=== PATIENT | male | born 1995 | race African-American/Black ===

== ENCOUNTER 2017-01-23 22:58 | Emergency (ER) | payer SELFPAY ==
[~2017-01-23] VITALS: Ht 167.6 cm; Wt 51.0 kg
[2017-01-24] MEDS ORDERED: SODIUM CHLORIDE 0.9% 1,000 ML IV ONE (02:30)
[2017-01-24 02:39] LABS: BASOPHILS % 0.2 % (0.0-2.0); DIFFERENTIAL COMMENT 0; EOSINOPHILS % 12.8 % (0.0-5.0); HEMATOCRIT. 39.8 % (42.0-52.0); HEMOGLOBIN. 12.8 g/dL (14.0-18.0); LYMPHOCYTES % 44.8 % (20.0-50.0); MEAN CORPUSCULAR HEMOGLOBIN 23.9 pg (28.0-32.0); MEAN CORPUSCULAR HGB CONC 32.3 g/dL (31.0-37.0); MEAN CORPUSCULAR VOLUME 74.2 fL (80.0-94.0); MEAN PLATELET VOLUME 8.2 fl (7.4-10.4); MONOCYTES % 8.5 % (2.0-8.0); NEUTROPHILS % 33.7 % (40.0-76.0); PLATELET 206 x1000/uL (130-400); RED BLOOD CELL COUNT 5.36 mill/uL (4.7-6.1); RED CELL DISTRIBUTION WIDTH 15.3 % (11.6-14.6); WHITE BLOOD COUNT 5.7 x1000/uL (4.5-11.0)
[2017-01-24 02:44] LABS: CHLORIDE 106 mEq/L (98-107); INDEX HEMOLYSI 1 (1-3); INDEX ICTERIC 1 (1-4); INDEX LIPEMIC 1 (1-3)
[2017-01-24 02:49] LABS: ANION GAP 10; CALCIUM 8.1 mg/dL (8.5-10.1); CARBON DIOXIDE 28 mEq/L (21-32); UREA NITROGEN BLOOD 10 mg/dL (7-21); eGFR > 60 mL/min (>60)
[2017-01-24 05:42] VITALS: BP 99/60
== END 2017-01-24 06:19 | disposition home or self-care (01) ==
LOC: ER 22:59
DX: R07.89 Other chest pain (principal); E86.0 Dehydration; J45.909 Unspecified asthma, uncomplicated
CPT/HCPCS: 36415; 80048; 85025; 96360; 99284; 99285; J7030

== ENCOUNTER 2017-01-28 05:16 | Emergency (ER) | payer SELFPAY ==
[~2017-01-28] VITALS: Ht 167.6 cm; Wt 61.0 kg
[2017-01-28] MEDS ORDERED: PREDNISONE 20MG TABLET PO ONE (06:45)
[2017-01-28] MEDS ORDERED: ALBUTEROL (0.083%) 2.5MG/3ML NEB HHN ONE (06:45)
[2017-01-28 06:52] VITALS: BP 122/88
== END 2017-01-28 09:15 | disposition home or self-care (01) ==
LOC: ER 05:32
DX: J45.901 Unspecified asthma with (acute) exacerbation (principal)
CPT/HCPCS: 71010; 94664; 99283; J7512; J7611

== ENCOUNTER 2017-02-01 01:46 | Emergency (ER) | payer SELFPAY ==
[~2017-02-01] VITALS: Ht 167.6 cm; Wt 59.0 kg
[2017-02-01] MEDS ORDERED: PREDNISONE 20MG TABLET PO STA (02:33)
[2017-02-01] MEDS ORDERED: IPRATROPIUM BROMIDE (0.02%) 0.5MG/2.5ML NEB HHN STA (02:33)
[2017-02-01] MEDS ORDERED: ALBUTEROL (0.083%) 2.5MG/3ML NEB HHN STA (02:33)
[2017-02-01 04:18] VITALS: BP 102/46
== END 2017-02-01 04:21 | disposition home or self-care (01) ==
LOC: ER 03:41
DX: J45.901 Unspecified asthma with (acute) exacerbation (principal)
CPT/HCPCS: 94644; 99283; J7512; J7611; Z7610

== ENCOUNTER 2017-02-09 00:11 | Emergency (ER) | payer SELFPAY ==
[~2017-02-09] VITALS: Ht 170.2 cm; Wt 62.0 kg
[2017-02-09 01:33] VITALS: BP 142/73
== END 2017-02-09 01:37 | disposition home or self-care (01) ==
LOC: ER 00:11
DX: J45.901 Unspecified asthma with (acute) exacerbation (principal)
CPT/HCPCS: 99283

== ENCOUNTER 2017-03-25 07:15 | Emergency (ER) | payer SELFPAY | END 2017-03-25 08:47 | disposition left against medical advice (07) | LOC: ER 08:46 | DX: Z53.21 Procedure and treatment not carried out due to patient leaving prior to being seen by health care provider (principal) ==

== ENCOUNTER 2017-04-07 15:23 | Emergency (ER) | payer SELFPAY ==
[~2017-04-07] VITALS: Ht 170.2 cm; Wt 65.0 kg
[2017-04-07] MEDS ORDERED: METOCLOPRAMIDE HCL 10MG TABLET PO STA (18:35)
[2017-04-07] MEDS ORDERED: SODIUM CHLORIDE 0.9% 1,000 ML IV ONE (18:35)
[2017-04-07] MEDS ORDERED: MAGNESIUM/ALUMINUM HYDROXIDE/SIMETHICONE 30ML UDC PO STA (18:35)
[2017-04-07] MEDS ORDERED: ONDANSETRON HCL 4MG/2ML VIAL IV STA (18:35)
[2017-04-07] MEDS ORDERED: KETOROLAC 30MG/ML VIAL IV ONE (18:45)
[2017-04-07 19:17] LABS: BASOPHILS % 0.4 % (0.0-2.0); DIFFERENTIAL COMMENT 0; EOSINOPHILS % 0.6 % (0.0-5.0); HEMATOCRIT. 44.1 % (42.0-52.0); HEMOGLOBIN. 14.7 g/dL (14.0-18.0); LYMPHOCYTES % 11.7 % (20.0-50.0); MEAN CORPUSCULAR HEMOGLOBIN 24.3 pg (28.0-32.0); MEAN CORPUSCULAR HGB CONC 33.3 g/dL (31.0-37.0); MONOCYTES % 4.2 % (2.0-8.0); NEUTROPHILS % 83.1 % (40.0-76.0); PLATELET 284 x1000/uL (130-400); RED BLOOD CELL COUNT 6.04 mill/uL (4.7-6.1); RED CELL DISTRIBUTION WIDTH 15.1 % (11.6-14.6); WHITE BLOOD COUNT 8.9 x1000/uL (4.5-11.0)
[2017-04-07 19:24] LABS: CLARITY URINE CLEAR (CLEAR); COLOR URINE YELLOW (YELLOW); GLUCOSE URINE NEGATIVE (NEGATIVE); KETONES URINE 1+ (NEGATIVE); LEUKOCYTE ESTERASE URINE NEGATIVE (NEGATIVE); NITRITE URINE NEGATIVE (NEGATIVE); OCCULT BLOOD URINE NEGATIVE (NEGATIVE); PROTEIN URINE TRACE (NEGATIVE); SPECIFIC GRAVITY URINE 1.026 (1.005-1.030)
[2017-04-07 19:30] LABS: ALANINE AMINOTRANSFERASE 24 IU/L (13-61); ALBUMIN 3.9 g/dL (3.4-5.0); ANION GAP 14; CALCIUM 9.2 mg/dL (8.5-10.1); CARBON DIOXIDE 27 mEq/L (21-32); CHLORIDE 103 mEq/L (98-107); ETHANOL BLOOD < 10 mg/dL; INDEX HEMOLYSI 1 (1-3); INDEX ICTERIC 1 (1-4); INDEX LIPEMIC 1 (1-3); LIPASE 76 IU/L (73-393); UREA NITROGEN BLOOD 9 mg/dL (7-21); eGFR > 60 mL/min (>60)
[2017-04-07 19:35] VITALS: BP 118/60
[2017-04-07 19:45] LABS: MUCUS URINE 2+ /lpf (NONE/TRACE); RBC URINE 0-2 /hpf (0-2); WBC URINE 0-2 /hpf (0-2)
[2017-04-07 19:46] LABS: SQUAMOUS EPITHELIAL CELL URINE RARE /lpf (RARE/1+)
[2017-04-07 19:47] LABS: BACTERIA URINE TRACE
== END 2017-04-07 21:00 | disposition home or self-care (01) ==
LOC: ER 15:23
DX: K29.20 Alcoholic gastritis without bleeding (principal); F10.10 Alcohol abuse, uncomplicated; J45.909 Unspecified asthma, uncomplicated
CPT/HCPCS: 36415; 80053; 81001; 83690; 85025; 96374; 96375; 99284; G0482; J1885; J2405; J7030; Z7610; J8597

== ENCOUNTER 2017-10-16 03:23 | Emergency (ER) | payer SELFPAY ==
[~2017-10-16] VITALS: Ht 167.6 cm; Wt 59.0 kg
[2017-10-16] MEDS ORDERED: ONDANSETRON HCL 4MG/2ML VIAL IV STA (04:25)
[2017-10-16] MEDS ORDERED: SODIUM CHLORIDE 0.9% 1,000 ML IV ONE (04:25)
[2017-10-16 05:48] LABS: BASOPHILS % 0.6 % (0.0-2.0); EOSINOPHILS % 0.7 % (0.0-5.0); HEMATOCRIT. 41.2 % (42.0-52.0); LYMPHOCYTES % 8.9 % (20.0-50.0); MEAN CORPUSCULAR HEMOGLOBIN 23.2 pg (28.0-32.0); MEAN CORPUSCULAR VOLUME 73.3 fL (80.0-94.0); NEUTROPHILS % 84.8 % (40.0-76.0); PLATELET 203 x1000/uL (130-400); RED BLOOD CELL COUNT 5.62 mill/uL (4.7-6.1); RED CELL DISTRIBUTION WIDTH 15.5 % (11.6-14.6)
[2017-10-16 05:55] LABS: CARBON DIOXIDE 26 mEq/L (21-32); CHLORIDE 109 mEq/L (98-107)
[2017-10-16 05:56] LABS: INR 1.1; PROTHROMBIN TIME 11.8 sec (9.4-11.6)
[2017-10-16 06:15] VITALS: BP 112/66
== END 2017-10-16 06:28 | disposition home or self-care (01) ==
LOC: ER 03:38
DX: R10.9 Unspecified abdominal pain (principal); J45.909 Unspecified asthma, uncomplicated; Z98.890 Other specified postprocedural states
CPT/HCPCS: 36415; 80053; 83690; 85025; 85610; 96374; 99284; J2405; J7030; Z7610

== ENCOUNTER 2017-10-21 04:49 | Emergency (ER) | payer SELFPAY ==
[~2017-10-21] VITALS: Ht 170.2 cm; Wt 59.0 kg
[2017-10-21 04:55] VITALS: BP 154/80
== END 2017-10-21 05:50 | disposition left against medical advice (07) ==
LOC: ER 05:29
DX: T62.91XA Toxic effect of unspecified noxious substance eaten as food, accidental (unintentional), initial encounter (principal); Z53.21 Procedure and treatment not carried out due to patient leaving prior to being seen by health care provider; R10.9 Unspecified abdominal pain; Y92.9 Unspecified place or not applicable

== ENCOUNTER 2018-07-09 03:13 | Emergency (ER) | payer MEDICAID ==
[~2018-07-09] VITALS: Ht 170.2 cm; Wt 59.0 kg
[2018-07-09] MEDS ORDERED: SODIUM CHLORIDE 0.9% 1,000 ML IV ONE (03:53)
[2018-07-09 04:23] LABS: CHLORIDE 107 mEq/L (98-107)
[2018-07-09 04:25] LABS: BASOPHILS % 2.5 % (0.0-2.0); EOSINOPHILS % 3.8 % (0.0-5.0); HEMATOCRIT. 43.1 % (42.0-52.0); LYMPHOCYTES % 41.5 % (20.0-50.0); MEAN CORPUSCULAR HEMOGLOBIN 23.7 pg (28.0-32.0); MEAN CORPUSCULAR VOLUME 72.8 fL (80.0-94.0); MEAN PLATELET VOLUME 8.5 fl (7.4-10.4); MONOCYTES % 8.8 % (2.0-8.0); NEUTROPHILS % 43.4 % (40.0-76.0); PLATELET 257 x1000/uL (130-400); RED BLOOD CELL COUNT 5.92 mill/uL (4.7-6.1); RED CELL DISTRIBUTION WIDTH 15.4 % (11.6-14.6)
[2018-07-09 04:27] LABS: ETHANOL BLOOD 83 mg/dL; PROTHROMBIN TIME 10.4 sec (9.1-11.1)
[2018-07-09 05:45] VITALS: BP 111/74
[2018-07-09 06:51] LABS: CLARITY URINE CLEAR (CLEAR); COLOR URINE YELLOW (YELLOW); KETONES URINE NEGATIVE (NEGATIVE); LEUKOCYTE ESTERASE URINE NEGATIVE (NEGATIVE); NITRITE URINE NEGATIVE (NEGATIVE); OCCULT BLOOD URINE NEGATIVE (NEGATIVE); PH URINE 8.5 (4.5-8.0); PROTEIN URINE NEGATIVE (NEGATIVE); SPECIFIC GRAVITY URINE 1.004 (1.005-1.030); UROBILINOGEN URINE 0.2 E.U./dL (0.2-1.0)
[2018-07-09 07:11] LABS: *AMPHETAMINES SCREEN URINE NEGATIVE (NEGATIVE); *BARBITURATES SCREEN URINE NEGATIVE (NEGATIVE); *BENZODIAZEPINES SCREEN URINE NEGATIVE (NEGATIVE); *COCAINE SCREEN URINE PRESUMTIVE POSITIVE (NEGATIVE); METHADONE URINE SCREEN NEGATIVE (NEGATIVE)
[2018-07-09 07:12] LABS: CANNABINOID URINE SCREEN PRESUMTIVE POSITIVE (NEGATIVE); OPIATES URINE SCREEN NEGATIVE (NEGATIVE); PHENCYCLIDINE URINE SCREEN NEGATIVE (NEGATIVE)
== END 2018-07-09 06:37 | disposition home or self-care (01) ==
LOC: ER 03:13
DX: R06.00 Dyspnea, unspecified (principal); J45.909 Unspecified asthma, uncomplicated; R53.1 Weakness; R42 Dizziness and giddiness; Z79.899 Other long term (current) drug therapy
CPT/HCPCS: 36415; 71045; 80053; 80305; 81003; 84484; 85025; 85610; 93005; 96360; 99285; G0482; J7030; Z7610

== ENCOUNTER 2018-12-29 00:20 | Emergency (ER) | payer MEDICAID ==
[~2018-12-29] VITALS: Ht 170.2 cm; Wt 61.0 kg
[2018-12-29] MEDS ORDERED: BACITRACIN ZINC OINT UDPKT TOP ONE (06:45)
[2018-12-29] MEDS ORDERED: IBUPROFEN 800MG TABLET PO ONE (06:45)
[2018-12-29] MEDS ORDERED: LIDOCAINE HCL/PF 1% 10 MG/ML 5ML VIAL IJ ONE (06:45)
[2018-12-29] MEDS ORDERED: TETANUS, DIPHTHERIA, PERTUSSIS VAC/PF 0.5ML (>7YR OLD) IM ONE (06:45)
[2018-12-29 08:30] VITALS: BP 97/62
== END 2018-12-29 08:33 | disposition home or self-care (01) ==
LOC: ER 00:20
DX: L02.01 Cutaneous abscess of face (principal); J45.909 Unspecified asthma, uncomplicated; Z98.890 Other specified postprocedural states
CPT/HCPCS: 10060; 90471; 90715; 99283; J3490; Z7610

== ENCOUNTER 2019-01-03 10:26 | Emergency (ER) | payer MEDICAID ==
[~2019-01-03] VITALS: Ht 170.2 cm; Wt 60.0 kg
[2019-01-03 10:37] VITALS: BP 105/61
== END 2019-01-03 12:38 | disposition home or self-care (01) ==
LOC: ER 10:26
DX: Z48.00 Encounter for change or removal of nonsurgical wound dressing (principal)
CPT/HCPCS: 99281